=== PATIENT | female | born 2000 | race Two or more races ===

== ENCOUNTER → 2024-12-20 | Emergency (ER) | payer OTHER ==
[~2024-12-20] VITALS: Ht 157.5 cm; Wt 68.9 kg
[~2024-12-20] MED LIST: PRENATE ELITE1 EAC2 PO
== END | disposition left against medical advice (07) ==
LOC: ER 22:36
DX: Z53.21 Procedure and treatment not carried out due to patient leaving prior to being seen by health care provider (principal)